=== PATIENT | male | born 1995 | race Hispanic/Latino ===

== ENCOUNTER 2016-08-24 17:59 | Emergency (ER) | payer BC ==
[2016-08-24 18:26] LABS: #Eosinphils 0.2 thou/uL (0.0-0.7); #Monocytes 0.4 thou/uL (0.11-0.59); #Neutrophils 10.6 thou/uL (1.40-6.50); %Basophils 0.4 % (0.0-1.0); %Eosinophils 1.7 % (0.0-10.0); %Monocytes 3.4 % (0.0-4.0); %Neutrophils 86.5 % (31.0-61.0); Hemoglobin 16.4 g/dL (14.0-18.0); Mean Corpuscular HGB CONC 33.9 g/dL (32.0-36.0); Mean Corpuscular Hemoglobin 30.4 pg (25.0-35.0); Mean Corpuscular Volume 89.8 fl (77.0-87.0); Mean Platelet Volume 5.5 fL (7.4-10.4); Platelet Count 266 thou/uL (130-400); RBC Distribution Width 11.3 % (11.5-14.5); White Blood Cell (WBC) Count 12.2 thou/uL (4.8-10.8)
[2016-08-24] MEDS ORDERED: Famotidine In NaCl 20 mg/50 ml Premix Bag ONE (18:26)
[2016-08-24] MEDS ORDERED: Ondansetron HCl/PF 4 MG/2 ML Vial ONE (18:26)
[2016-08-24] MEDS ORDERED: Ketorolac Tromethamine 30 MG/ML VIAL ONE (18:38)
[2016-08-24 18:41] LABS: ALT (SGPT) 57 U/L (0-55); AST (SGOT) 40 U/L (10-45); Albumin 4.7 g/dL (3.5-5.0); Alkaline Phosphatase 101 U/L (Less than 750); Anion Gap 14 mmol/L (10-20); BUN (Urea Nitrogen) 17 mg/dL (8.4-21.0); Bilirubin, Total 0.9 mg/dL (0.2-1.2); Calc. Creatinine Clearance 0 mL/min (70-130); Calcium 9.3 mg/dL (7.8-10.44); Carbon Dioxide 24 mmol/L (22-29); Chloride 107 mmol/L (98-107); Estimated GFR-MDRD Greater than 90; Globulin 3.1 g/dL (2.4-3.5); Glucose 102 mg/dL (70-105); Lipase 9 U/L (8-78); Protein, Total 7.8 g/dL (6.0-8.3); Sodium 141 mmol/L (136-145)
== END 2016-08-24 19:35 | disposition home or self-care (01) ==
LOC: BURERS 17:59
DX: R10.13 Epigastric pain (principal); R11.2 Nausea with vomiting, unspecified
CPT/HCPCS: 80053; 83690; 85025; 96361; 96374; 96375; J1885; J2405

== ENCOUNTER 2017-07-04 20:00 | Emergency (ER) | payer BC ==
[2017-07-04] MEDS ORDERED: Ciprofloxacin 500 MG TAB ONE (20:13)
[2017-07-04] MEDS ORDERED: Adacel (T-DAP) 0.5 ML VIAL ONE (20:13)
== END 2017-07-04 20:35 | disposition home or self-care (01) ==
LOC: BURERS 20:00
DX: S91.332A Puncture wound without foreign body, left foot, initial encounter (principal); W22.8XXA Striking against or struck by other objects, initial encounter
CPT/HCPCS: 90471; 90715